=== PATIENT | male | born 1955 | race Caucasian/White ===

== ENCOUNTER → 2016-12-04 | Outpatient (CLI) | payer OTHER ==
[~2016-12-04] MED LIST: HYDR-5688 PO; NAPR1CAP12 PO; SIMV40TA2 PO; TRIA37.5 PO
--- NOTE | 2016-12-04 12:15 | DIAGNOSTIC IMAGING REPORT ---
RIGHT KNEE 1 OR 2 VIEWS ROUTINE CLINICAL HISTORY: KNEE PAIN R Right pain COMPARISON: None. DISCUSSION: Mild degenerative change medial joint compartment. Lateral joint compartment and patellofemoral joint intact. There is no evidence for soft tissue swelling. IMPRESSION: Mild/moderate degenerative change medial joint compartment. Electronically signed by: Bo Henson M.D. 12/04/2016 12:14 PM Dictated Date/Time: 12/04/2016 12:13 PM
== END | disposition home or self-care (01) ==
LOC: C.RADPV 11:55
PROVIDERS: ATTEND Family Medicine
DX: M25.561 Pain in right knee (principal)

== ENCOUNTER → 2017-02-08 | Outpatient (CLI) | payer OTHER ==
[2017-02-08 10:01] LABS: ALT/SGPT 58 U/L (12-78); BLOOD UREA NITROGEN 22 mg/dl (7-18); BUN/CREATININE RATIO 24.7 (10-20); CARBON DIOXIDE 29 mmol/L (21-32); CHLORIDE 105 mmol/L (98-107); CHOLESTEROL 167 mg/dl (0-200); CREATININE 0.87 mg/dl (0.60-1.40); GLUCOSE 92 mg/dl (70-99); POTASSIUM 3.8 mmol/L (3.5-5.1); SODIUM 143 mmol/L (136-145); TRIGLYCERIDES 165 mg/dl (0-150); VERY LOW DENSITY LIPOPROT CALC 33 mg/dl
[2017-02-08 10:06] LABS: CALCIUM 9.3 mg/dl (8.5-10.1)
[2017-02-08 10:07] LABS: ALB/GLOB RATIO 1.5 (0.9-2); ALKALINE PHOSPHATASE 58 U/L (45-117); AST/SGOT 34 U/L (15-37); CHOLESTEROL/HDL RATIO 2.6; HDL CHOLESTEROL 65 mg/dl; LDL CHOLESTEROL CALCULATED 69 mg/dl
== END | disposition home or self-care (01) ==
LOC: C.LAB 08:13
PROVIDERS: ATTEND Family Medicine
DX: E78.5 Hyperlipidemia, unspecified (principal)

== ENCOUNTER → 2017-02-15 | Outpatient (CLI) | payer OTHER ==
[~2017-02-15] VITALS: Ht 171.5 cm; Wt 85.0 kg
[2017-02-15 13:33] VITALS: BP 125/77; PULSE 62; Ht 171.5 cm; Wt 85.0 kg
== END | disposition home or self-care (01) ==
LOC: C.NEUR 12:13
PROVIDERS: ATTEND Physician Assistant
DX: G47.30 Sleep apnea, unspecified (principal)

== ENCOUNTER → 2017-02-27 | Outpatient (CLI) | payer OTHER ==
[2017-02-27 15:40] LABS: BASO % 0.3 %; BASO ABS # 0.02 K/uL (0-0.2); COMPLETE YES; EOS % 1.4 %; HEMATOCRIT 44.4 % (42-52); IG% 0.2 %; LYMPH % 25.6 %; LYMPH ABS # 1.69 K/uL (1.2-3.4); MEAN CELL VOLUME 91.2 fL (80-100); MEAN CORPUSCULAR HEMOGLOBIN 31.4 pg (25-34); MEAN CORPUSCULAR HGB CONC 34.5 g/dl (32-36); MEAN PLATELET VOLUME 10.3 fL (7.4-10.4); MONO % 7.1 %; NEUT % 65.4 %; PLATELET COUNT 279 K/uL (130-400); RED BLOOD COUNT 4.87 M/uL (4.7-6.1); WHITE BLOOD COUNT 6.59 K/uL (4.8-10.8)
[2017-02-27 16:17] LABS: BLOOD UREA NITROGEN 18 mg/dl (7-18); BUN/CREATININE RATIO 18.6 (10-20); CARBON DIOXIDE 25 mmol/L (21-32); CHLORIDE 111 mmol/L (98-107); CREATININE 0.95 mg/dl (0.60-1.40); GLUCOSE 110 mg/dl (70-99); POTASSIUM 3.7 mmol/L (3.5-5.1); SODIUM 145 mmol/L (136-145)
== END | disposition home or self-care (01) ==
LOC: C.CPL 14:55
PROVIDERS: ATTEND Orthopaedic Surgery
DX: Z01.810 Encounter for preprocedural cardiovascular examination (principal); Z01.812 Encounter for preprocedural laboratory examination; S83.241S Other tear of medial meniscus, current injury, right knee, sequela; X58.XXXS Exposure to other specified factors, sequela

== ENCOUNTER → 2017-03-07 | Day surgery (SDC) | payer OTHER ==
[2017-03-04 07:51] VITALS: Ht 170.2 cm; Wt 82.7 kg
[~2017-03-07] VITALS: Ht 170.2 cm; Wt 82.7 kg
[~2017-03-07] MED LIST changes: +ATROPINE SULFATE 0.1 MG/ML 5ML SYR IV PRN; +CEFAZOLIN 2000 MG/60 ML D5W IV SCH; +DEXAMETHASONE SOD INJ 4 MG/ML VIAL IV PRN; +DEXAMETHASONE SOD INJ 4 MG/ML VIAL ONE; +EpHEDrine SULFATE INJ 50 MG/ML AMP IV PRN; +EpINEphrine INJ 1MG/ML AMP 1 MG/ML AMP ONE; +FENTANYL CITRATE INJ 50 MCG/1 ML 2 ML VIAL IV PRN; +FENTANYL CITRATE INJ 50 MCG/1 ML 2 ML VIAL ONE; +HYDROCODONE/ACETAMOPHEN 5/325MG TAB PO PRN; +KETOROLAC TROMETHAMINE 30 MG/ML VIAL IV. PRN; +KETOROLAC TROMETHAMINE 30 MG/ML VIAL ONE; +LABETALOL HCL IV 5 MG/ML 20ML IV PRN; +LACTATED RINGER'S 1000ML 1,000 ML IV SCH; +LIDOCAINE HCL 2% 2 ML VIAL (20MG/ML) ONE; +METOCLOPRAMIDE HCL INJ 5 MG/ML 2 ML VIAL IV PRN; +MIDAZOLAM HCL 1 MG/ML 2ML VIAL ONE; +MoRPHine SULFATE 10 MG/ML CARP/VIAL IV PRN; +ONDANSETRON INJ 2 MG/ML 2 ML VIAL IV PRN; +ONDANSETRON INJ 2 MG/ML 2 ML VIAL ONE; +PHENYLEPHRINE 100MCG/ML 5ML SYR IV PRN; +PROPOFOL IV EMULSION 10 MG/ML 20 ML VIAL IV ONE; +ROPIVACAINE 0.5% 5 MG/ML 30 ML VIAL ONE; +SODIUM CHLORIDE 0.9% 1000ML 1,000 ML IV SCH
--- NOTE | 2017-03-07 06:58 | History & Physical Bridge - [place] ---
H&P Re-Evaluation Bridge Note: I have examined the patient, reviewed the History & Physical and in the interval since the performance of the History & Physical I have noted the following changes of clinical significance: No changes noted
--- NOTE | 2017-03-07 09:16 | Discharge Instructions-SurgCtr ---
Discharge Instructions Date of Service Mar 07, 2017. Visit Reason for Visit: Right Knee Medial Meniscus Tear Discharge Discharge Diagnosis / Problem: SAME ABOVE Discharge Goals Goal(s): Decrease discomfort, Improve function Medications Stopped Medications Name(s): Leatha madsen 1 week Restart Stopped Medication(s): MAY RESTART 03/08/2017 Activity Recommendations Activity Limitations: as noted below Lifting Limitations: gradually increase as tolerated Exercise/Sports Limitations: gradually increase as tolerated Shower/Bathe: tomorrow Anesthesia . Post Anesthesia Instructions: If you have had General Anesthesia or IV Sedation: * Do not drive today. * Resume driving when surgeon permits. * Do not make important decisions or sign legal documents today. * Call surgeon for: 1. Temperature elevations greater than 101 degrees F. 2. Uncontrollable pain. 3. Excessive bleeding. 4. Persistent nausea and vomiting. 5. Medication intolerance (nausea, vomiting or rash). * For nausea and vomiting use only clear liquids such as: tea, soda, bouillon until nausea subsides, then gradually increase diet as tolerated. * If you have any concerns or questions, call your surgeon's office. If physician is unavailable and it is an emergency, call 911 or go to the nearest emergency room. . Instructions / Follow-Up Instructions / Follow-Up MEDICATIONS: * Resume previous medications unless instructed otherwise by your surgeon. * Always take pain medication on a full stomach or with food to avoid upset stomach. * Do not drink alcohol or drive while taking narcotics. * Ibuprofen or Tylenol may be taken if narcotic not needed. SPECIAL CARE INSTRUCTIONS: __ None _X_ Keep extremity elevated and iced x 48 hours; apply ice 20-30 minutes 8-10 times/day. May remove at night. _X_ Crutches _X_ May discard when able __ Brace/Post-op shoe __ 24 hrs/day __ Remove at night _X_ Dressing __ Maintain until seen in office, may shower with plastic over site _X_ Remove dressings in 24-48 hours and then may shower _X_ Cover incisions with band-aids after showering __ Do not remove steri-strips Call physician if chills or temperature rises above 102 degrees or pain unrelieved by prescribed pain medications. Office [phone] Diet Recommendations Home Diet: no limitations Fluid Restriction: None Procedures Procedures Performed: Right Knee Arthroscopy, Partial Medial Meniscectomy Pending Studies Studies pending at discharge: no Work Instructions Return To Work: after follow-up (OR UNTIL PAIN IS WELL CONTROLLED ) Medical Emergencies . Who to Call and When: Medical Emergencies: If at any time you feel your situation is an emergency, please call 911 immediately. . Non-Emergent Contact Non-Emergency issues call your: Primary Care Provider Call Non-Emergent contact if: you have a fever, temperature is above 101.5 . . "Provider Documentation" section prepared by Kendrick Shearer. .
--- NOTE | 2017-03-07 09:38 | Anesthesia Progress Nt - [facility] ---
Anesthesia Post Op Note Date & Time Mar 07, 2017 at 09:38 Vital Signs Pain Intensity: 5 Vital Signs Past 12 Hours Date Time Temp Pulse Resp B/P (MAP) Pulse Ox O2 Delivery O2 Flow Rate FiO2 03/07/17 09:31 140/92 03/07/17 09:28 37.0 03/07/17 09:28 62 23 97 03/07/17 09:28 61 23 03/07/17 09:26 145/87 03/07/17 09:23 66 18 03/07/17 09:23 66 18 97 03/07/17 09:21 151/89 03/07/17 09:18 69 24 03/07/17 09:18 73 24 98 03/07/17 09:17 147/87 03/07/17 09:13 69 17 03/07/17 09:13 69 17 100 03/07/17 09:11 136/91 03/07/17 09:11 124/112 03/07/17 09:08 65 14 99 03/07/17 09:08 63 14 03/07/17 09:06 146/91 03/07/17 09:04 36.6 63 18 141/94 99 Diffusion Mask 8 03/07/17 09:03 69 19 03/07/17 09:03 65 19 141/94 100 03/07/17 06:45 36.4 65 16 145/88 (107) 98 Room Air Notes Mental Status: alert / awake / arousable, participated in evaluation Pt Amnestic to Procedure: Yes Nausea / Vomiting: adequately controlled Pain: adequately controlled Airway Patency, RR, SpO2: stable & adequate BP & HR: stable & adequate Hydration State: stable & adequate Anesthetic Complications: no major complications apparent
[2017-03-07 09:40] VITALS: TEMP 36.4
[2017-03-07 10:23] VITALS: BP 145/77; PULSE 61; O2SAT 98
--- NOTE | 2017-03-07 10:55 | [facility] Post Operative Brief Note ---
Immediate Operative Summary Operative Date Mar 07, 2017. Pre-Operative Diagnosis Right Knee Medial Meniscal Tear Post-Operative Diagnosis Same Procedure(s) Performed Right Knee Arthroscopy, Partial Medial Meniscectomy Surgeon Dr. Lee Costume Shop Manager Surgeon(s) Redd Shearer PA-C Estimated Blood Loss 5 ml Findings as above Specimens None Complication(s) None Disposition Recovery Room / PACU
--- NOTE | 2017-03-18 20:18 | OPERATIVE REPORT ---
CHIEF COMPLAINT: Medial meniscal tear of the right knee. POSTOPERATIVE DIAGNOSIS: Same. PROCEDURE: Right knee diagnostic arthroscopy with partial medial meniscectomy. SURGEON: Dr. Jesús Troy. ESTATE AGENT: Seng Shearer PA-C, whose assistance was necessary for positioning of the leg and helping with instrumentation. ANESTHESIA: General. COMPLICATIONS: None. CONDITION: Stable to PACU. INDICATIONS: Jarett is a pleasant 61-year-old male who presented to my office with a sudden increase of right knee pain. MRI and clinical examination were diagnostic for medial meniscal tear of the right knee. After failing conservative treatment, he elected to undergo a right knee arthroscopy. On March 07, 2017, he arrived at [facility] for the above procedure. He was seen in the preoperative holding area and the operative extremity was identified and signed. He was given a preoperative antibiotic and taken back to the operating room, laid on the table in the supine position and put under general anesthesia. The right knee was then prepped and draped in sterile fashion. A time-out was done and the patient and operative extremity was properly identified. A scope was introduced in the lateral prepatellar portal. Diagnostic arthroscopy showed no loose bodies in the suprapatellar pouch. There was no arthritis in the patellofemoral joint. The scope was brought into the medial compartment and a medial parapatellar portal was made under direct visualization. There was a small area of grade 3 chondral changes all in the distal aspect of the medial femoral condyle. There was a large meniscus tear involving the posterior horn and the posterior medial body of the meniscus. A shaver and a biter were used to remove the unstable fragments of the meniscus. The scope was then brought into the trochlea, ACL and PCL were intact. The scope was brought into the lateral compartment and there was no meniscal cartilage damage. The scope was then placed in the medial parapatellar portal and repeat diagnostic arthroscopy showed no additional pathology. Arthroscopic instruments were removed from the shoulder. Portal sites were closed with 3-0 nylon. The knee was then injected with 30 cc of Ropivacaine, epinephrine, and Toradol. He was then placed in a soft compressive dressing and extubated and taken to the postanesthesia care unit in stable condition. He tolerated the procedure well.
== END | disposition home or self-care (01) ==
LOC: X.SURG 06:38
PROVIDERS: ATTEND Orthopaedic Surgery
DX: S83.241A Other tear of medial meniscus, current injury, right knee, initial encounter (principal); E78.00 Pure hypercholesterolemia, unspecified; G47.30 Sleep apnea, unspecified; H81.09 Meniere's disease, unspecified ear; Z79.899 Other long term (current) drug therapy; X58.XXXA Exposure to other specified factors, initial encounter

== ENCOUNTER → 2017-08-23 | Outpatient (CLI) | payer OTHER ==
[~2017-08-23] MED LIST changes: -ATROPINE SULFATE 0.1 MG/ML 5ML SYR IV PRN; -CEFAZOLIN 2000 MG/60 ML D5W IV SCH; -DEXAMETHASONE SOD INJ 4 MG/ML VIAL IV PRN; -DEXAMETHASONE SOD INJ 4 MG/ML VIAL ONE; -EpHEDrine SULFATE INJ 50 MG/ML AMP IV PRN; -EpINEphrine INJ 1MG/ML AMP 1 MG/ML AMP ONE; -FENTANYL CITRATE INJ 50 MCG/1 ML 2 ML VIAL IV PRN; -FENTANYL CITRATE INJ 50 MCG/1 ML 2 ML VIAL ONE; -HYDROCODONE/ACETAMOPHEN 5/325MG TAB PO PRN; -KETOROLAC TROMETHAMINE 30 MG/ML VIAL IV. PRN; -KETOROLAC TROMETHAMINE 30 MG/ML VIAL ONE; -LABETALOL HCL IV 5 MG/ML 20ML IV PRN; -LACTATED RINGER'S 1000ML 1,000 ML IV SCH; -LIDOCAINE HCL 2% 2 ML VIAL (20MG/ML) ONE; -METOCLOPRAMIDE HCL INJ 5 MG/ML 2 ML VIAL IV PRN; -MIDAZOLAM HCL 1 MG/ML 2ML VIAL ONE; -MoRPHine SULFATE 10 MG/ML CARP/VIAL IV PRN; -ONDANSETRON INJ 2 MG/ML 2 ML VIAL IV PRN; -ONDANSETRON INJ 2 MG/ML 2 ML VIAL ONE; -PHENYLEPHRINE 100MCG/ML 5ML SYR IV PRN; -PROPOFOL IV EMULSION 10 MG/ML 20 ML VIAL IV ONE; -ROPIVACAINE 0.5% 5 MG/ML 30 ML VIAL ONE; -SODIUM CHLORIDE 0.9% 1000ML 1,000 ML IV SCH
[2017-08-23 09:52] LABS: ALT/SGPT 57 U/L (12-78); AST/SGOT 36 U/L (15-37); BLOOD UREA NITROGEN 26 mg/dl (7-18); BUN/CREATININE RATIO 30.2 (10-20); CALCIUM 9.3 mg/dl (8.5-10.1); CARBON DIOXIDE 27 mmol/L (21-32); CHLORIDE 104 mmol/L (98-107); CHOLESTEROL 228 mg/dl (0-200); CREATININE 0.88 mg/dl (0.60-1.40); GLUCOSE 100 mg/dl (70-99); POTASSIUM 3.7 mmol/L (3.5-5.1); SODIUM 138 mmol/L (136-145); TRIGLYCERIDES 177 mg/dl (0-150); VERY LOW DENSITY LIPOPROT CALC 35 mg/dl
[2017-08-23 09:56] LABS: ALB/GLOB RATIO 1.4 (0.9-2); ALKALINE PHOSPHATASE 66 U/L (45-117); CHOLESTEROL/HDL RATIO 3.1; HDL CHOLESTEROL 73 mg/dl; LDL CHOLESTEROL CALCULATED 120 mg/dl
== END | disposition home or self-care (01) ==
LOC: C.LAB 08:10
PROVIDERS: ATTEND Family Medicine
DX: E80.4 Gilbert syndrome (principal); E80.6 Other disorders of bilirubin metabolism; E78.5 Hyperlipidemia, unspecified; H81.09 Meniere's disease, unspecified ear; G47.30 Sleep apnea, unspecified